=== PATIENT | male | born 1985 | race Caucasian/White ===

== ENCOUNTER 2016-08-23 00:01 | Emergency (ER) | payer MEDICAID ==
[~2016-08-23] VITALS: Ht 172.7 cm; Wt 83.9 kg
[2016-08-23] MEDS ORDERED: FAMOTIDINE 20 MG TABLET PO ONE (00:30)
[2016-08-23] MEDS ORDERED: MAALOX/HYOSCYAMINE/LIDOCAINE 45 ML BOTTLE PO ONE (00:30)
[2016-08-23] MEDS ORDERED: FAMOTIDINE 20 MG TABLET ONE (00:31)
[2016-08-23] MEDS ORDERED: MAALOX/HYOSCYAMINE/LIDOCAINE 45 ML BOTTLE ONE (00:32)
[2016-08-23 00:56] LABS: ASPARTATE AMINO TRANSFERASE 16 U/L (15-37); BLOOD UREA NITROGEN 12 mg/dL (7-18)
[2016-08-23 01:11] LABS: PATH.CAST-FLAG NOT PRESENT; SPERM-FLAG NOT PRESENT; SRC-FLAG NOT PRESENT; XTAL-FLAG NOT PRESENT; YLC-FLAG NOT PRESENT
[2016-08-23 01:40] VITALS: BP 129/89
== END 2016-08-23 01:48 | disposition home or self-care (01) ==
LOC: ED 01:30
DX: K29.00 Acute gastritis without bleeding (principal); R10.13 Epigastric pain; G89.29 Other chronic pain; M54.9 Dorsalgia, unspecified; Z87.891 Personal history of nicotine dependence
CPT/HCPCS: 36415; 80053; 81003; 83690; 85025; 93005